=== PATIENT | female | born 1995 | race American Indian/Alaskan Native ===

== ENCOUNTER 2017-11-11 08:14 | Day surgery (SDC) | payer BC ==
--- NOTE | 2017-11-11 11:43 | Short Stay Summary ---
Short Stay Documentation Date of service: 11/11/17 - History Principal diagnosis: left cervical lymphadenopathy H&P: obtained from office - Allergies and Medications Current Medications: Allergies No Known Allergies Allergy (Unverified 11/11/17 08:15) Home Medications Medication Instructions Recorded Confirmed Last Taken Type Fluticasone [Flonase] 1 spray INNOSTRIL PRN PRN 11/11/17 11/11/17 11/10/17 History 1 spray - Physical exam General appearance: no acute distress HEENT: Other (palpable left neck mass) - Brief post op/procedure progress note Date of procedure: 11/11/17 Pre-op diagnosis: left cervical lymphadenopathy Post-op diagnosis: same Procedure: US guided FNA Anesthesia: local Findings: 2x3cm left cervical lymph node Surgeon: PRIYANK RODRIGUEZ Estimated blood loss: none Pathology: list (FNA x 3) Specimen disposition: to lab Condition: stable - Disposition Condition at discharge: Good Disposition: [id number] TO HOME OR SELFCARE Short Stay Discharge Plan Follow up with: DOROTHEA GUNDERSON MD [Primary Care Provider] - 7 Days
[2017-11-11 11:53] VITALS: BP 110/59
--- NOTE | 2017-11-11 12:07 | Ultrasound Report ---
ULTRASOUND CORE BIOPSY NECK PNL HISTORY: Left neck mass. DESCRIPTION OF THE PROCEDURE: Informed consent was obtained. Sterile technique was utilized. 1% lidocaine for skin anesthesia. Please note that ultrasound guided core biopsy could not be performed secondary to the close proximity of the left carotid artery. Using ultrasound guidance, 3 fine needle aspirations were performed on a hypoechoic left neck mass measuring 3.1 x 1.4 x 2.2 cm. One sample was placed on a microscope slide. One sample was placed in RPI media. One sample was placed in satellite media. The samples were deemed adequate by the pathologist on site. No complications. IMPRESSION: Successful fine needle aspiration of a left neck mass as described above. This appeared to be an enlarged lymph node.
== END 2017-11-11 11:55 | disposition home or self-care (01) ==
LOC: CATHLABREC 08:14
PROVIDERS: ATTEND Otolaryngology Sleep Medicine
DX: R59.1 Generalized enlarged lymph nodes (principal)
CPT/HCPCS: 10022; 20206; 76942; 88104; 88112; 88184; 88185